=== PATIENT | male | born 1965 | race African-American/Black ===

== ENCOUNTER 2017-06-02 22:11 | Emergency (ER) | payer SELFPAY ==
[~2017-06-02] VITALS: Ht 180.3 cm; Wt 110.0 kg
[2017-06-02 22:13] VITALS: BP 146/109; PULSE 108; RESP 20; TEMP 98.8; O2SAT 96
[2017-06-02] MEDS ORDERED: HYDROmorphone HCL PF 1 MG/ML VIAL IM ONE (23:45)
[2017-06-02] MEDS ORDERED: PROMETHAZINE INJ 25 MG/ML VIAL IM ONE (23:45)
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
[2017-06-03] MEDS ORDERED: TRAM50TA PO (00:16)
[2017-06-03] MEDS ORDERED: LISI-515 PO (00:16)
[2017-06-03] MEDS ORDERED: HYDR-3580 PO (00:16)
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
[2017-06-03] MEDS ORDERED: PERC10TA27 PO (00:42)
== END 2017-06-03 01:31 | disposition home or self-care (01) ==
LOC: NEPD 22:11
DX: M54.42 Lumbago with sciatica, left side (principal); M25.552 Pain in left hip; I10 Essential (primary) hypertension; Z87.39 Personal history of other diseases of the musculoskeletal system and connective tissue
CPT/HCPCS: 72100; 73502; 96372; 99284; J1170; J2550